=== PATIENT | male | born 2000 | race Caucasian/White ===

== ENCOUNTER → 2024-10-27 | Outpatient (CLI) | payer OTHER ==
--- NOTE | 2024-10-27 08:05 | US ---
EXAMINATION TYPE: US liver DATE OF EXAM: 10/27/2024 COMPARISON: NONE CLINICAL INDICATION: Male, 24 years old with history of I10 HTN R74.8 ABNORMAL LEVELS OF OTHER SERUM ENZYM; Abnormal LFT's TECHNIQUE: Grayscale and color Doppler imaging of the right upper quadrant was performed. 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 [facility], , 10/27/2024 8:02 AM
--- NOTE | 2024-10-27 08:06 | US ---
EXAMINATION TYPE: US renal artery duplex complet DATE OF EXAM: 10/27/2024 COMPARISON: NONE CLINICAL INDICATION: Male, 24 years old with history of I10 HTN R74.8 ABNORMAL LEVELS OF OTHER SERUM ENZYM; Pt states high BP, established with new physician and they wanted renal arteries checked TECHNIQUE: Grayscale, color Doppler and spectral Doppler imaging of the bilateral renal arteries and kidneys. FINDINGS: MEASUREMENTS: RENAL SIZE: Right Kidney: 12.0 x 5.0 x 5.9 cm Left Kidney: 11.8 x 6.4 x 5.6 cm Right Kidney: No evidence of hydro, appeared wnl Left Kidney: No evidence of hydro, appeared wnl Abd Aorta: Appeared wnl RESISTANCE INDEX Right: 0.6 Left: 0.6 RA/AO RATIO (< 3.5 ) Right: 1.5 Left: 1.5 RENAL ARTERY VELOCITY ( < 180 cm/s) Right: 161 Left: 159 Drapery Worker Notes: Appropriate color Doppler flow and spectral waveforms to the kidneys bilaterally. Grayscale imaging of the kidneys and show no evidence for hydronephrosis or mass. No renal calculi or cysts visualized. IMPRESSION: No evidence for renal artery stenosis bilaterally. [facility], , 10/27/2024 8:04 AM
== END | disposition home or self-care (01) ==
LOC: RADUSWWP 07:05
PROVIDERS: ATTEND Internal Medicine
DX: I10 Essential (primary) hypertension (principal); R74.8 Abnormal levels of other serum enzymes
CPT/HCPCS: 76705; 93975